=== PATIENT | male | born 1950 | race Caucasian/White ===

== ENCOUNTER 2019-06-22 09:40 | Day surgery (SDC) | payer MEDICARE ==
[~2019-06-22] VITALS: Ht 182.9 cm; Wt 98.0 kg
[~2019-06-22 09:40] MED LIST: B-121000 MC1 PO
[2019-06-22 12:49] VITALS: BP 138/73
== END 2019-06-22 13:05 | disposition home or self-care (01) ==
LOC: ENDO 09:40 → ORM 15:55 → ENDO 15:55 → ORM 20:45
PROVIDERS: ATTEND Internal Medicine Gastroenterology
PROC: 0DBN8ZX Excision of Sigmoid Colon, Via Natural or Artificial Opening Endoscopic, Diagnostic (ICD-10-PCS; principal; 2019-06-22)
PROC: 0DBP8ZX Excision of Rectum, Via Natural or Artificial Opening Endoscopic, Diagnostic (ICD-10-PCS; 2019-06-22)
DX: K57.31 Diverticulosis of large intestine without perforation or abscess with bleeding (principal); D12.5 Benign neoplasm of sigmoid colon; K62.1 Rectal polyp; K64.4 Residual hemorrhoidal skin tags; K64.8 Other hemorrhoids

== ENCOUNTER 2019-10-18 | Emergency (ER) | payer OTHER, MEDICARE ==
[2019-10-18] MEDS ORDERED: PREDNISONE50 MG PO (20:16)
== END 2019-10-18 20:39 | disposition home or self-care (01) | DRG 918 ==
DX: T63.441A Toxic effect of venom of bees, accidental (unintentional), initial encounter (principal)

== ENCOUNTER 2020-04-18 07:39 | Day surgery (SDC) | payer MEDICARE ==
[~2020-04-18] VITALS: Ht 182.9 cm; Wt 94.3 kg
[~2020-04-18 07:39] MED LIST changes: +PREDNISONE50 MG PO
[2020-04-18 12:18] VITALS: BP 155/87
== END 2020-04-18 12:40 | disposition home or self-care (01) ==
LOC: ENDO 07:39 → ORM 09:00 → ENDO 10:40
PROVIDERS: ATTEND Internal Medicine Gastroenterology
PROC: 0DBL8ZX Excision of Transverse Colon, Via Natural or Artificial Opening Endoscopic, Diagnostic (ICD-10-PCS; principal; 2020-04-18)
DX: D12.3 Benign neoplasm of transverse colon (principal); K57.30 Diverticulosis of large intestine without perforation or abscess without bleeding; K64.8 Other hemorrhoids; K64.4 Residual hemorrhoidal skin tags; Z86.010 Personal history of colon polyps; Z11.59 Encounter for screening for other viral diseases